=== PATIENT | male | born 1965 | race Caucasian/White ===

== ENCOUNTER 2020-03-01 03:56 | Inpatient (IN) | payer BC, SELFPAY ==
[~2020-03-01] VITALS: Ht 165.1 cm; Wt 70.3 kg
[2020-03-01 04:05] VITALS: BP_SYST 130
[2020-03-01] MEDS ORDERED: NACL 0.9% 1,000 ML IV ONE ×2 (04:30→07:15)
[2020-03-01] MEDS ORDERED: MORPHINE 2 MG/ML INJ. SYRINGE IVP ONE ×2 (04:30→06:45)
[2020-03-01] MEDS ORDERED: MAGNESIUM CITRATE 300 ML ORAL SOLUTION PO ONE (06:30)
[2020-03-01] MEDS ORDERED: MAGNESIUM CITRATE 300 ML ORAL SOLUTION ONE (06:34)
[2020-03-01] MEDS ORDERED: MORPHINE 2 MG/ML INJ. SYRINGE ONE (06:39)
[2020-03-01] MEDS ORDERED: MINERAL OIL 30 ML UDC PO ONE (07:15)
[2020-03-01] MEDS ORDERED: KETOROLAC TROMETHAMINE 30 MG VIAL IVP ONE (07:15)
[2020-03-01] MEDS ORDERED: ONDANSETRON HCL 4 MG/2 ML VIAL IVP ONE (07:15)
[2020-03-01] MEDS ORDERED: KETOROLAC TROMETHAMINE 30 MG VIAL ONE (07:27)
[2020-03-01 10:46] VITALS: BP_SYST 137
[2020-03-01 12:00] VITALS: BP_SYST 111
[2020-03-01] MEDS ORDERED: MORPHINE 2 MG/ML INJ. SYRINGE IVP PRN (12:00)
[2020-03-01] MEDS ORDERED: NALOXONE HCL 0.4 MG/ML AMP (NARCAN) IVP PRN (12:00)
[2020-03-01] MEDS ORDERED: MORPHINE 4 MG/ML INJ. SYRINGE IVP PRN (12:00)
[2020-03-01] MEDS ORDERED: METOCLOPRAMIDE HCL 10 MG/2 ML VIAL IVP PRN (12:00)
[2020-03-01] MEDS ORDERED: GOLYTELY / COLYTE SOLUTION 4 LITERS PO ONE (12:00)
[2020-03-01] MEDS ORDERED: ONDANSETRON HCL 4 MG/2 ML VIAL IVP PRN (12:00)
[2020-03-01] MEDS ORDERED: LR 1,000 ML IV SCH (12:15)
[2020-03-01 13:44] LABS: BASOPHILS # (AUTO) 0.1 K/uL (0.0-0.2); BASOPHILS % (AUTO) 0.4 % (0.0-2.0); EOSINOPHILS % (AUTO) 0.3 % (0.0-4.0); HEMATOCRIT 45.8 % (36-54); HEMOGLOBIN 15.5 g/dL (14.0-18.0); LYMPHOCYTES # (AUTO) 1.5 K/uL (1.0-5.5); MEAN CORPUSCULAR HEMOGLOBIN 32 pg (27-31); MEAN CORPUSCULAR HGB CONC 34 % (32-36); MEAN CORPUSCULAR VOLUME 95 fL (79.0-98.0); MONOCYTES % (AUTO) 6.9 % (1.7-9.3); NEUTROPHILS # (AUTO) 11.4 K/uL (1.8-7.7); NEUTROPHILS % (AUTO) 81.4 % (40.0-70.0); PLATELET COUNT (AUTO) 275 K/uL (130-430); RED BLOOD CELL COUNT(AUTO) 4.85 MIL/uL (4.2-6.2); RED CELL DISTRIBUTION WIDTH 12.9 % (9.0-15.0)
[2020-03-01 13:51] LABS: ALBUMIN 3.9 g/dL (3.4-4.8); CALCIUM 8.8 mg/dL (8.4-11.0); CREATININE 0.87 mg/dL (0.55-1.30); TOTAL BILIRUBIN 0.9 mg/dL (0.0-1.0)
[2020-03-01 14:03] LABS: PROTHROMBIN TIME 10.4 SECS (9.5-12.5)
[2020-03-01 15:33] LABS: BILIRUBIN,URINE NEGATIVE (NEGATIVE); BLOOD, URINE NEGATIVE (NEGATIVE); CLARITY/URINE CLEAR (CLEAR); COLOR,URINE YELLOW (YELLOW); GLUCOSE,URINE NEGATIVE (NEGATIVE); KETONES,URINE NEGATIVE (NEGATIVE); LEUKOCYTE ESTERASE ,URINE NEGATIVE (NEGATIVE); NITRITE, URINE NEGATIVE (NEGATIVE); PROTEIN URINE NEGATIVE (NEGATIVE); UROBILINOGEN,URINE 0.2 (0.2-1.0)
[2020-03-01 16:37] VITALS: BP_SYST 119
[2020-03-01 20:00] VITALS: BP_SYST 134
[2020-03-01] MEDS ORDERED: DOCUSATE SODIUM 100 MG CAPSULE PO ONE (21:35)
[2020-03-01 21:57] VITALS: BP_SYST 134
== END 2020-03-01 22:30 | disposition home or self-care (01) | DRG 390 ==
LOC: SED 03:56 → SMU 08:55
PROVIDERS: ADMIT Internal Medicine; ATTEND Internal Medicine
DX: K56.41 Fecal impaction (principal); K76.9 Liver disease, unspecified
CPT/HCPCS: 36415; 76376; 80053; 81003; 82378; 85025; 85610-TC; 85730-TC; 96361; 96374; 96375; 96376; J1885; J2270; J2405; J7030; J7120